=== PATIENT | male | born 1960 | race Caucasian/White ===

== ENCOUNTER 2020-09-25 16:23 | Outpatient (CLI) | payer OTHER ==
--- NOTE | 2020-09-25 16:43 | RAD ---
Cervical spine 4 views HISTORY: Pain. FINDINGS: There is straightening of the normal lordotic curvature. Vertebral body heights are maintai brian. Down to the C6 level seen on the lateral view. Cervicothoracic junction is intact on the swimmer's and frontal views. Osteophytosis throughout the lower vertebral bodies and the facets. No a cute fracture or dislocation are apparent. IMPRESSION : Degenerative changes lower cervical spine. No acute osseous abnormalities are demonstrated.
== END 2020-09-25 16:24 | disposition home or self-care (01) ==
LOC: BICRAD 16:23
PROVIDERS: ATTEND Specialist
DX: M47.22 Other spondylosis with radiculopathy, cervical region (principal)
CPT/HCPCS: 72040

== ENCOUNTER 2021-10-17 11:05 | Outpatient (CLI) | payer OTHER | END 2021-10-17 11:06 | disposition home or self-care (01) | LOC: BICRAD 11:05 | PROVIDERS: ATTEND Specialist | DX: M47.22 Other spondylosis with radiculopathy, cervical region (principal) | CPT/HCPCS: 72040 ==

== ENCOUNTER 2024-05-05 12:32 | Outpatient (CLI) | payer BC | END 2024-05-05 12:33 | disposition home or self-care (01) | LOC: RAD 12:32 | PROVIDERS: ATTEND Physician Assistant Surgical | DX: M47.12 Other spondylosis with myelopathy, cervical region (principal); M47.22 Other spondylosis with radiculopathy, cervical region; Z98.1 Arthrodesis status | CPT/HCPCS: 72040 ==

== ENCOUNTER 2024-06-09 10:32 | Outpatient (CLI) | payer BC | END 2024-06-09 10:33 | disposition home or self-care (01) | LOC: BICMRI 10:32 | PROVIDERS: ATTEND Orthopaedic Surgery | DX: M25.511 Pain in right shoulder (principal); M75.121 Complete rotator cuff tear or rupture of right shoulder, not specified as traumatic; M77.8 Other enthesopathies, not elsewhere classified ==